=== PATIENT | male | born 1970 | race Caucasian/White ===

== ENCOUNTER 2021-01-31 09:07 | Emergency (ER) | payer MEDICARE ==
[~2021-01-31] VITALS: Ht 177.8 cm; Wt 111.1 kg
[~2021-01-31 09:07] MED LIST: ATOR80 PO; Aspir 8181 MG PO; CARV6.25 PO; EZET10 PO; FURO20 PO; HYDR1TAB94 PO; Lisinopril2.5 MG PO; SPIR25 PO; Ventolin/Prove6.7 GM
[2021-01-31] MEDS ORDERED: ANORO ELLIPTA1 EACH INH (09:51)
[2021-01-31 09:53] LABS: BASOPHILS ABSOLUTE AUTO 0.05 K/mm3 (0.00-0.23); BASOPHILS PERCENT AUTO 0 % (0-2); EOSINOPHILS PERCENT AUTO 1 % (0-6); Hematocrit 50.8 % (37.0-53.0); Hemoglobin 16.7 g/dL (13.5-17.5); IMMATURE GRAN ABSOLUTE AUTO 0.04 K/mm3 (0.00-0.10); IMMATURE GRAN PERCENT AUTO 0 % (0-1); LYMPHOCYTES ABSOLUTE AUTO 2.13 K/mm3 (0.84-5.20); LYMPHOCYTES PERCENT AUTO 18 % (21-46); MONOCYTES ABSOLUTE AUTO 1.17 K/mm3 (0.16-1.47); MONOCYTES PERCENT AUTO 10 % (4-13); Mean Corpuscular HGB 29.3 pg (26.0-34.0); Mean Corpuscular HGB Conc 32.9 g/dL (31.5-36.5); Mean Corpuscular Volume 89 fL (80-100); Mean Platelet Volume 11.5 fL (9.1-12.4); NEUTROPHILS ABSOLUTE AUTO 8.25 K/mm3 (1.96-9.15); NEUTROPHILS PERCENT AUTO 70 % (41-73); Platelet Count 202 K/mm3 (150-400); RDW Coefficient Variation 13.9 % (11.7-14.2); RDW Standard Deviation 45.6 fL (35.1-46.3); Red Blood Cell Count 5.69 M/mm3 (4.30-5.90); White Blood Cell Count 11.74 K/mm3 (4.00-11.30)
[2021-01-31 10:17] LABS: Alanine Aminotransfer (ALT/SGP 23 U/L (12-78); Albumin, Blood 3.8 g/dL (3.4-5.0); Alk Phos 77 U/L (50-136); Anion Gap 3 mmol/L (6-16); Aspartate Aminotrans (AST/SGOT 19 U/L (12-37); Bilirubin, Total 0.7 mg/dL (0.1-1.0); Blood Urea Nitrogen 13 mg/dL (8-24); Bun/Creatinine Ratio 11.9 (12.0-20.0); CO2, Blood 28 mmol/L (21-32); Calcium, Blood 9.1 mg/dL (8.5-10.1); Chloride, Blood 109 mmol/L (98-108); Creatinine, Blood 1.09 mg/dL (0.60-1.20); Glomerular Filtration Rate >60 (60-); Glucose, Blood 101 mg/dL (70-99); Potassium, Blood 4.3 mmol/L (3.5-5.5); Sodium, Blood 140 mmol/L (136-145); Total Protein, Blood 7.8 g/dL (6.4-8.2)
[2021-01-31] MEDS ORDERED: Percocet 5-3251 EACH PO (12:46)
[2021-01-31] MEDS ORDERED: IBUP600 PO (12:46)
[2021-01-31] MEDS ORDERED: Acetaminophen500 MG PO (12:47)
[2021-01-31] MEDS ORDERED: ONDA4 PO (12:47)
== END 2021-01-31 13:10 | disposition home or self-care (01) ==
LOC: ER 09:07
PROVIDERS: Student in an Organized Health Care Education/Training Program
DX: K80.70 Calculus of gallbladder and bile duct without cholecystitis without obstruction (principal); K57.30 Diverticulosis of large intestine without perforation or abscess without bleeding; Z79.82 Long term (current) use of aspirin; Z79.899 Other long term (current) drug therapy
CPT/HCPCS: 36415; 74177; 76705; 80053; 83690; 85025; 93005; 93010; 96361; 96374; 96375; 99284-25; J1170; J1885; J2270; J2405; J7120; Q9967

== ENCOUNTER → 2024-07-02 | Outpatient (CLI) | payer MEDICARE ==
[~2024-07-02] MED LIST changes: +ANORO ELLIPTA1 EACH INH; +Acetaminophen500 MG PO; +IBUP600 PO; +ONDA4 PO; +Percocet 5-3251 EACH PO
[2024-07-02 11:26] LABS: Albumin/Globulin Ratio 1.2 (0.8-1.8); Bilirubin, Total 0.8 mg/dL (0.1-1.0); Bun/Creatinine Ratio 10.8 (12.0-20.0); Calcium, Blood 8.9 mg/dL (8.5-10.1); Creatinine, Blood 1.11 mg/dL (0.60-1.20); Globulin, Blood 3.3 g/dL (2.2-4.0); Potassium, Blood 4.3 mmol/L (3.5-5.5); Total Protein, Blood 7.3 g/dL (6.4-8.2)
[2024-07-02 12:19] LABS: BASOPHILS ABSOLUTE AUTO 0.09 K/mm3 (0.00-0.23); BASOPHILS PERCENT AUTO 1 % (0-2); EOSINOPHILS ABSOLUTE AUTO 0.12 K/mm3 (0.00-0.68); EOSINOPHILS PERCENT AUTO 1 % (0-6); Hematocrit 47.6 % (37.0-53.0); IMMATURE GRAN ABSOLUTE AUTO 0.03 K/mm3 (0.00-0.10); IMMATURE GRAN PERCENT AUTO 0 % (0-1); LYMPHOCYTES ABSOLUTE AUTO 2.59 K/mm3 (0.84-5.20); LYMPHOCYTES PERCENT AUTO 26 % (21-46); MONOCYTES ABSOLUTE AUTO 0.79 K/mm3 (0.16-1.47); MONOCYTES PERCENT AUTO 8 % (4-13); Mean Corpuscular HGB 30.1 pg (26.0-34.0); Mean Corpuscular HGB Conc 33.6 g/dL (31.5-36.5); Mean Corpuscular Volume 90 fL (80-100); Mean Platelet Volume 12.4 fL (9.1-12.4); NEUTROPHILS ABSOLUTE AUTO 6.33 K/mm3 (1.96-9.15); NEUTROPHILS PERCENT AUTO 64 % (41-73); Platelet Count 198 K/mm3 (150-400); RDW Coefficient Variation 13.6 % (11.7-14.2); RDW Standard Deviation 44.1 fL (35.1-46.3); Red Blood Cell Count 5.32 M/mm3 (4.30-5.90); White Blood Cell Count 9.95 K/mm3 (4.00-11.30)
== END | disposition home or self-care (01) ==
LOC: LAB SHORT 11:11 → LAB 11:11
PROVIDERS: Chiropractor
DX: R22.0 Localized swelling, mass and lump, head (principal)
CPT/HCPCS: 80053; 85025

== ENCOUNTER → 2024-07-09 | Outpatient (CLI) | payer MEDICARE, OTHER | LOC: LAB SHORT 11:58 → LAB 11:58 | DX: D49.0 Neoplasm of unspecified behavior of digestive system (principal) | CPT/HCPCS: 88173 ==

== ENCOUNTER → 2024-07-30 | Outpatient (CLI) | payer MEDICARE, OTHER | END | disposition home or self-care (01) | LOC: LAB SHORT 07:43 → LAB 07:43 → PLD 07:43 | DX: D49.0 Neoplasm of unspecified behavior of digestive system (principal) | CPT/HCPCS: 88173 ==

== ENCOUNTER 2024-08-27 10:47 | Inpatient (IN) | payer MEDICARE ==
[~2024-08-27] VITALS: Ht 177.8 cm; Wt 99.8 kg
[2024-08-27 12:46] LABS: Albumin, Blood 4.3 g/dL (3.4-5.0); Albumin/Globulin Ratio 1.2 (0.8-1.8); Bilirubin, Total 1.2 mg/dL (0.1-1.0); Bun/Creatinine Ratio 14.7 (12.0-20.0); Calcium, Blood 9.3 mg/dL (8.5-10.1); Creatinine, Blood 0.89 mg/dL (0.60-1.20); Globulin, Blood 3.6 g/dL (2.2-4.0); Potassium, Blood 4.9 mmol/L (3.5-5.5); Total Protein, Blood 7.9 g/dL (6.4-8.2)
[2024-08-27 12:47] LABS: BASOPHILS ABSOLUTE AUTO 0.06 K/mm3 (0.00-0.23); BASOPHILS PERCENT AUTO 1 % (0-2); EOSINOPHILS ABSOLUTE AUTO 0.06 K/mm3 (0.00-0.68); EOSINOPHILS PERCENT AUTO 1 % (0-6); Hematocrit 48.1 % (37.0-53.0); IMMATURE GRAN ABSOLUTE AUTO 0.09 K/mm3 (0.00-0.10); IMMATURE GRAN PERCENT AUTO 1 % (0-1); LYMPHOCYTES ABSOLUTE AUTO 1.81 K/mm3 (0.84-5.20); LYMPHOCYTES PERCENT AUTO 18 % (21-46); MONOCYTES ABSOLUTE AUTO 0.92 K/mm3 (0.16-1.47); MONOCYTES PERCENT AUTO 9 % (4-13); Mean Corpuscular HGB Conc 33.3 g/dL (31.5-36.5); Mean Corpuscular Volume 90 fL (80-100); NEUTROPHILS ABSOLUTE AUTO 7.12 K/mm3 (1.96-9.15); NEUTROPHILS PERCENT AUTO 71 % (41-73); Platelet Count 185 K/mm3 (150-400); RDW Coefficient Variation 13.5 % (11.7-14.2); RDW Standard Deviation 44.2 fL (35.1-46.3); Red Blood Cell Count 5.33 M/mm3 (4.30-5.90); White Blood Cell Count 10.06 K/mm3 (4.00-11.30)
[2024-08-27] MEDS ORDERED: OxyCODONE 5 mg/Acetamin 325 mg TABLET PO PRN (17:55)
[2024-08-27] MEDS ORDERED: Melatonin 5 MG Tablet PO PRN ×2 (17:55→18:35)
[2024-08-27] MEDS ORDERED: Furosemide 40 MG Tab PO ONE (18:00)
[2024-08-27] MEDS ORDERED: Ipratropium/Albuterol SulF 2.5-0.5MG/3 ML Amp INH SCH (18:05)
[2024-08-27 19:05] VITALS: BP 146/88
--- NOTE | 2024-08-27 19:26 | NUR ---
SHIFT SUMMARY ARRIVED FROM ED PATIENT CAME UP FROM ED JUST BEFORE SHIFT CHANGE AOX4 ABLE TO MAKE NEEDS KNOWN, HE DENIES CHEST PAIN AND SOB. HIS VITALS ARE CHARTED. HE CAME UP ON THE AMIO DRIP. REPORT WAS GIVEN TO THE FLUSH TESTER ALL QUESTIONS WERE ANSWERED.
[2024-08-27 20:05] VITALS: BP 146/88
--- NOTE | 2024-08-27 21:31 | NUR ---
CRITICAL LAB : NOTIFIED MD OF TREND - MD AWARE TREND IS LOWER THAN ORIGINAL TROPONIN. SPOKE WITH DONNELL
[2024-08-27 23:37] VITALS: BP 100/85
[2024-08-28 04:38] LABS: Bun/Creatinine Ratio 15.5 (12.0-20.0); Calcium, Blood 8.8 mg/dL (8.5-10.1); Creatinine, Blood 1.1 mg/dL (0.60-1.20); Magnesium, Blood 1.9 mg/dL (1.6-2.4); Potassium, Blood 3.6 mmol/L (3.5-5.5)
--- NOTE | 2024-08-28 05:59 | NUR ---
SHIFT SUMMARY: PT IN AFIB ON AMIODARONE DRIP REDUCED TO .5 FROM 1 , PT STILL IN AFIB BUT DIPPED DOWN TO 40S-50S UNSUSTAINED, WHEN AWKE PT JUMPS TO 120S-130S, FREQUENT PVCS, ONE RUN OF 7 BEATS VTACH EARLY IN THE SHIFT, PT IS PLEAANT AND COOPERATIVE WITH CARES ABLE TO MAKE NEEDS KNOWN, USES CALLLIGHT APPROPRIATELY, ENDORSED PAIN IN LEFT NECK FROM TUMORS, PRN GIVEN AND EFFECTIVE, PT STATED HE HAS BEEN UNDER EXTREME STRESS RELATED TO HIS BEING SEVERLY ILL AND CLOSE TO HER , PT IS ANXIOUS TO GET BACK HOME TO HER
--- NOTE | 2024-08-28 07:15 | NUR ---
ASSUMPTION NOTE: THIS RN TO ASSUME CARE OF PATIENT. PATIENT IS AWAKE AND IN BED. CARLOTTA CAME BY AND CHATTED WITH PATIENT. PATIENT DENIED ANY CHEST PAIN/PRESSURE OR FEELING SHORT OF BREATH. HAS CALL LIGHT WITHIN REACH & BED IN LOWEST POSITION
[2024-08-28 07:22] VITALS: BP 117/74
[2024-08-28] MEDS ORDERED: Carvedilol 6.25 MG Tab PO SCH ×3 (08:00→17:00)
[2024-08-28] MEDS ORDERED: Enoxaparin 40 MG/0.4 ML SYR SC SCH ×2 (09:00)
[2024-08-28] MEDS ORDERED: Docusate Sodium 100 MG Cap PO SCH ×2 (09:00)
[2024-08-28] MEDS ORDERED: Spironolactone 25 MG Tab PO SCH (09:00)
[2024-08-28] MEDS ORDERED: Lisinopril 5 MG Tab PO SCH ×2 (09:00)
[2024-08-28] MEDS ORDERED: Aspirin 81 MG Chew PO SCH ×2 (09:00)
[2024-08-28] MEDS ORDERED: Potassium Chloride 20 MEQ TabCR PO ONE (09:00)
[2024-08-28] MEDS ORDERED: Furosemide 20 MG Tab PO SCH (09:00)
[2024-08-28] MEDS ORDERED: Atorvastatin 40 MG Tab PO SCH ×2 (09:00)
[2024-08-28] MEDS ORDERED: Spironolactone 50 MG Tab PO SCH (09:00)
[2024-08-28] MEDS ORDERED: Apixaban 5 MG Tab PO SCH (09:30)
--- NOTE | 2024-08-28 09:30 | NUR ---
ROUNDED: ROUNDED WITH [employer] DEVICE REP TO INTORROGATE DEVICE ONCE AGAIN. GAVE ORDERS FOR PATIENT TO START PO AMIODARONE ONCE DISCHARGE AND THAT LOOKS LIKE IT WILL BE TOMORROW.
[2024-08-28] MEDS ORDERED: Furosemide 10 MG/ML 4ML Vial IV ONE (09:35)
--- NOTE | 2024-08-28 10:14 | NUR ---
MD CALLED: THIS RN CALLED MD REGARDING DOSE OF LASIX AND GIVEN ORDER TO HOLD PO LASIX BUT TO GIVE IV.
--- NOTE | 2024-08-28 10:47 | NUR ---
MD ROUNDED: HOSPITALIST ROUNDED AND CHATTED WITH PATIENT. PATIENT DENYING ANY NEEDS, AWARE HE WILL STAY UNTIL TOMORROW MORNING. AWARE THAT SISTER WILL BRING IN PATIENTS MEDICATIONS AND THEY WILL BE RECONCILLED.
[2024-08-28] MEDS ORDERED: Ipratropium/Albuterol SulF 2.5-0.5MG/3 ML Amp INH PRN (11:00)
[2024-08-28] MEDS ORDERED: METO25ER PO (11:00)
[2024-08-28] MEDS ORDERED: Crestor40 MG PO (11:01)
[2024-08-28] MEDS ORDERED: LOSARTAN POTAS100 M1 PO (11:01)
[2024-08-28] MEDS ORDERED: Mometasone/Formoterol MDI 200/5 mcg 13 GM INH SCH (11:05)
[2024-08-28] MEDS ORDERED: ANORO ELLIPTA INHALER INH SCH (11:35)
[2024-08-28 12:00] VITALS: BP 129/66
[2024-08-28 16:45] VITALS: BP 118/72
--- NOTE | 2024-08-28 17:06 | NUR ---
SHIFT SUMMARY: PATIENT IS ALERT AND ORIENTED X4 & COOPERATIVE WITH HIS CARE, IS ABLE TO MAKE NEEDS KNOWN & USES CALL LIGHT APPROPRIATELY. PATIENT SATTING >92% ON ROOM AIR, EVEN & UNLABORED RESPIRATIONS AT REST. PATIENT AMIO DRIP WAS STOPPED TODAY AND TO START ORAL AMIODARONE TOMORROW UPON DISCHARGE. PATIENT AWARE TO BECOME NPO AT MIDNIGHT FOR A STRESS TEST PRIOR TO DISCHARGE. AN ECHO WAS DONE TODAY, RESULTS ARE IN THE CHART. A NEW IV WAS PLACED IN THE LEFT FOREARM DUE TO THE AC IV INFILTRATING. PATIENT HAD GOOD URINE OUTPUT WITH THE ONE TIME DOSE OF IV LASIX THIS AM. PATIENT SISTER BROUGHT IN MEDICATIONS AND MED REC WAS COMPLETED WITH MD ADDING THOSE MEDICATIONS. HAS CALL LIGHT WITHIN REACH & BED IN LOWEST POSITION, STATNING NOTHING IS NEEDED AT THIS TIME.
[2024-08-28 19:21] VITALS: BP 135/88
--- NOTE | 2024-08-28 19:38 | NUR ---
CARE ASSUMED NOW FOR THIS PATIENT. REPORT RECEIVED FROM LISA RODRIGUEZ. PATIENT IS ABLE TO PARTICIPATE IN BEDSIDE REPORT. COMPLAINING OF LEFT TOOTH PAIN. CONTINUE CARE
--- NOTE | 2024-08-28 19:55 | NUR ---
PATIENT JUST HAD [address] BEATS OF V-TACH. DR. QUINTERO NOTIFIED NOW. TO CONTINUE TO MONITOR. PATIENT WAS ASYMPTOMATIC. RATES IN THE HIGH 40'S TO 50'S NOW
[2024-08-28 23:22] VITALS: BP 98/61
[2024-08-29 04:12] VITALS: BP 119/66
[2024-08-29 04:26] LABS: Hemoglobin 16.2 g/dL (13.5-17.5); Mean Corpuscular HGB 29.7 pg (26.0-34.0); Mean Corpuscular HGB Conc 33.8 g/dL (31.5-36.5); Mean Corpuscular Volume 88 fL (80-100); Mean Platelet Volume 11.7 fL (9.1-12.4); Platelet Count 170 K/mm3 (150-400); RDW Coefficient Variation 13.4 % (11.7-14.2); RDW Standard Deviation 43.4 fL (35.1-46.3); Red Blood Cell Count 5.46 M/mm3 (4.30-5.90); White Blood Cell Count 12.54 K/mm3 (4.00-11.30)
[2024-08-29 04:47] LABS: Bun/Creatinine Ratio 20.4 (12.0-20.0); Calcium, Blood 8.8 mg/dL (8.5-10.1); Creatinine, Blood 1.03 mg/dL (0.60-1.20); Magnesium, Blood 1.9 mg/dL (1.6-2.4); Potassium, Blood 3.9 mmol/L (3.5-5.5)
--- NOTE | 2024-08-29 05:35 | NUR ---
NO MORE BEATS OF V-TACH NOTED LAST NIGHT. PATIENT STATED HE DIDN'T SLEEP WELL DUE TO THE MONITOR BEEPING WHEN HIS PULSE DIPPED BELOW 50 BPM. PAIN IN HIS LEFT JAW AREA. MEDICATED WITH PERCOCET. NPO FOR STRESS TEST ROOM AIR. NO NEW ISSUES.
--- NOTE | 2024-08-29 07:06 | NUR ---
ASSUMPTION NOTE: THIS RN TO ASSUME CARE OF PATIENT. PATIENT IS ASLEEP IN BED, EASILY AROUSABLE. HAS CALL LIGHT WITHIN REACH & BED IN LOWEST POSITION. STATING NOTHING IS NEEDED AT THIS TIME.
[2024-08-29 07:37] VITALS: BP 120/87
--- NOTE | 2024-08-29 07:38 | NUR ---
MD AT BEDSIDE: MD AT BEDSIDE UPDATED PATIENT REGARDING THE PLAN FOR TODAY THE STRESS TEST AND TO GET AN INTERROGATION OF THE ICD THIS MORNING WELL.
[2024-08-29] MEDS ORDERED: Atorvastatin 40 MG Tab PO SCH (09:00)
[2024-08-29] MEDS ORDERED: Losartan Potassium 25 MG Tab PO SCH (09:00)
[2024-08-29] MEDS ORDERED: Metoprolol Succinate 50 MG TABCR PO SCH ×2 (09:00)
[2024-08-29] MEDS ORDERED: Amiodarone HCl 200 MG Tab PO SCH (09:00)
[2024-08-29 11:53] VITALS: BP 105/71
[2024-08-29] MEDS ORDERED: ELIQUIS5 M2 PO (13:13)
[2024-08-29] MEDS ORDERED: AMIODARONE HCL400 M2 PO (13:15)
[2024-08-29] MEDS ORDERED: Caffeine Citrated 60 MG/3 ML Vial ONE (13:42)
[2024-08-29] MEDS ORDERED: Regadenoson 0.4 MG/5 ML SYRINGE ONE (13:42)
[2024-08-29 16:00] VITALS: BP 134/93
--- NOTE | 2024-08-29 17:05 | NUR ---
DISCHARGE NOTE: PATIENT DISCHARGE TO HOME AND LEFT WITH ALL PERSONAL BELONGINGS. 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 PATIENT TO ACCESS REGISTRAR MEDCIATIONS FROM [facility] & START THEM TOMORROW. IV WAS TAKEN OUT, TELE TAKEN OFF & PATIENT WHEELED OUT VIA WHEELCHAIR.
== END 2024-08-29 17:04 | disposition home or self-care (01) | DRG 309 ==
LOC: ER 10:47 → ERHOLD 17:50 → PCU 17:50 → ER 18:25 → PCU 18:25
PROVIDERS: Emergency Medicine; Hospitalist; Nurse Practitioner Acute Care; ADMIT Internal Medicine
DX: I49.01 Ventricular fibrillation (principal); I50.22 Chronic systolic (congestive) heart failure; I25.10 Atherosclerotic heart disease of native coronary artery without angina pectoris; I11.0 Hypertensive heart disease with heart failure; E78.5 Hyperlipidemia, unspecified; I25.5 Ischemic cardiomyopathy; R79.89 Other specified abnormal findings of blood chemistry; J44.89 Other specified chronic obstructive pulmonary disease; I48.91 Unspecified atrial fibrillation; I25.2 Old myocardial infarction; Z87.19 Personal history of other diseases of the digestive system; Z90.89 Acquired absence of other organs; Z90.49 Acquired absence of other specified parts of digestive tract; Z79.899 Other long term (current) drug therapy; Z79.82 Long term (current) use of aspirin; Z79.811 Long term (current) use of aromatase inhibitors; Z79.51 Long term (current) use of inhaled steroids; Z79.1 Long term (current) use of non-steroidal anti-inflammatories (NSAID); Z79.891 Long term (current) use of opiate analgesic; Z87.891 Personal history of nicotine dependence; Z95.5 Presence of coronary angioplasty implant and graft; Z95.0 Presence of cardiac pacemaker
CPT/HCPCS: 36415; 36416; 71045; 78452; 80048; 80053; 83735; 83880; 84439; 84443; 84481; 84484; 85025; 85027; 93005; 93010; 93017; 93282; 94640; 94664; 94760; 96365; 99285-25; A9270; A9500; C8929; J0282; J0706; J1940; J2785; Q9957